=== PATIENT | male | born 1955 | race Caucasian/White ===

== ENCOUNTER 2023-08-07 06:50 | Outpatient (CLI) | payer MEDICARE, SELFPAY ==
--- NOTE | 2023-08-07 07:11 | MR_ITS ---
WS: [id number] MRI LUMBAR SPINE NONCONTRAST TECHNIQUE: Sagittal T1, T2 and STIR imaging. Axial T1 and T2 imaging. CLINICAL INFORMATION: LUMBAR RADICULOPATHY LEFT SIDE COMPARISON: None. FINDINGS: Mild lumbar curve. No acute compression. Slight retrolisthesis L2 on L3 and L3 on L4. Severe central canal stenosis L4-5. L1-L2: Mild annular bulging. Mild facet arthropathy. Spinal canal and foramen are patent. L2-L3: Tiny central protrusion with moderate central canal stenosis. Mild facet arthropathy. Foramen are patent. Impingement RIGHT subarticular recess. L3-L4: Tiny central protrusion. Moderate central canal stenosis. Moderate facet arthropathy. Mild gavin ateral foraminal narrowing. L4-L5: Mild disc bulging examination with facet arthropathy and ligamentum flavum hypertrophy results in severe central canal stenosis. Impingement traversing L5 nerve roots bilaterally. Foramen are pat ent. Evidence of prior hemilaminectomy at this level. L5-S1: Mild annular bulging. Slight impingement on the traversing S1 nerve roots bilaterally. Mild fa cet arthropathy. Mild LEFT and no significant RIGHT foraminal narrowing. Visualized pelvic bony structures: Normal. Paravertebral soft tissues: Normal. Tiny central protrusions at T4-T5 and T5-T6 on the radiagraph operator imaging with mild central canal stenosis. IMPRESSION: 1. Severe central canal stenosis L4-5 due to disc bulging in combination with facet arthropathy and ligamentum flavum hypertrophy. Remote postoperative changes at this level. 2. Moderate central canal stenosis L2-L3 and L3-L4. 3. Annular bulging L5-S1 with slight impingement traversing S1 nerve roots bilaterally. 4. Tiny central protrusions at T4-T5 and T5-T6 on the radiagraph operator imaging with mild central canal stenosis .
== END 2023-08-07 06:51 | disposition home or self-care (01) ==
LOC: RAD 06:51
PROVIDERS: Visit Provider Emergency Medicine
DX: M47.26 Other spondylosis with radiculopathy, lumbar region (principal); M48.04 Spinal stenosis, thoracic region; M48.061 Spinal stenosis, lumbar region without neurogenic claudication
CPT/HCPCS: 72148